=== PATIENT | male | born 2000 | race Caucasian/White ===

== ENCOUNTER 2019-05-10 11:10 | Emergency (ER) | payer OTHER ==
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
== END 2019-05-10 11:37 | disposition home or self-care (01) ==
LOC: MW.ED 11:10
DX: S09.90XA Unspecified injury of head, initial encounter (principal); Z88.0 Allergy status to penicillin; V89.2XXA Person injured in unspecified motor-vehicle accident, traffic, initial encounter; W22.8XXA Striking against or struck by other objects, initial encounter
CPT/HCPCS: 99283

== ENCOUNTER 2019-05-12 10:34 | Emergency (ER) | payer OTHER ==
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
--- NOTE | 2019-05-12 12:43 | CT ---
INDICATION: Pain. Concussion for 3 days headache. Nausea. Dizzy. TECHNIQUE: CT head without IV contrast. FINDINGS: No intracranial atrophy, edema, or mass effect. Moderate prominence of the cisterna magnum. Remainder negative. IMPRESSION: No acute intracranial disease. Moderate prominence of the cisterna magnum. Please note that all CT scans at this facility use dose modulation, iterative reconstruction, and/or weight-based dosing when appropriate to reduce radiation dose to as low as reasonably achievable. Dictated by Nasir Grant MD @ May 12 2019 12:40PM Signed by Dr. Nasir Grant @ May 12 2019 12:42PM
== END 2019-05-12 13:14 | disposition home or self-care (01) ==
LOC: MW.ED 10:34
DX: S06.0X0A Concussion without loss of consciousness, initial encounter (principal); W22.8XXA Striking against or struck by other objects, initial encounter; Y93.89 Activity, other specified; Y99.0 Civilian activity done for income or pay
CPT/HCPCS: 70450; 70450-26; 99282; 99284-25